=== PATIENT | male | born 2000 | race Caucasian/White ===

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

== ENCOUNTER → 2020-03-11 07:47 | Outpatient (BNVA) | payer BC, SELFPAY | PROVIDERS: Family Provider Family Medicine; PCP Family Medicine; Visit Provider Psychiatry & Neurology Psychiatry | DX: F31.9 Bipolar disorder, unspecified (principal); F41.1 Generalized anxiety disorder; F90.0 Attention-deficit hyperactivity disorder, predominantly inattentive type | CPT/HCPCS: 99214 ==

== ENCOUNTER → 2020-04-03 10:12 | Outpatient (BNVA) | payer BC, SELFPAY | PROVIDERS: Family Provider Family Medicine; PCP Family Medicine; Visit Provider Orthopaedic Surgery | DX: S82.851A Displaced trimalleolar fracture of right lower leg, initial encounter for closed fracture (principal); T14.8XXA Other injury of unspecified body region, initial encounter; Z11.59 Encounter for screening for other viral diseases; W19.XXXA Unspecified fall, initial encounter | CPT/HCPCS: 73610 ==

== ENCOUNTER → 2020-04-07 10:07 | Outpatient (BNVA) | payer BC, SELFPAY | PROVIDERS: Family Provider Family Medicine; PCP Family Medicine; Visit Provider Orthopaedic Surgery | DX: Z20.818 Contact with and (suspected) exposure to other bacterial communicable diseases (principal); T14.8XXA Other injury of unspecified body region, initial encounter; S82.851A Displaced trimalleolar fracture of right lower leg, initial encounter for closed fracture; X58.XXXA Exposure to other specified factors, initial encounter | CPT/HCPCS: 87635 ==

== ENCOUNTER 2020-04-08 05:30 | Day surgery (SDC) | payer BC, SELFPAY ==
[2020-04-07 11:15] VITALS: BMI 38.5
[2020-04-08] VITALS (11 sets, daily range): BP systolic 119–159; BP diastolic 68–102; PULSE 77–101; RESP 16–18; TEMP 36.1–36.9; O2SAT 92–99
--- NOTE | 2020-04-08 | XR_ITS ---
WS: [id number] Right ankle, 3 C-arm fluoroscopy views in the OR, 04/08/2020 Clinical Data: ORIF ankle Comparison: Right ankle, 04/03/2020. Findings: The trimalleolar fracture has been reduced with the aid of a distal fibular plate. There are at least 9 orthopedic screws attaching the plate to the fibula. There are 2 AP screws in the midportion of th e fibular fracture. There are 2 oblique screws in the medial malleolus. XR/XR ankle RT min 3V* [id number] Impression: Internal fixation of trimalleolar fracture.
--- NOTE | 2020-04-08 | SCC_ITS ---
Procedure Done: Open reduction internal fixation right medial and lateral malleolar 42.0 seconds of fluoroscopic guidance, for a cumulative dose of 1.73 mGy, was provided to Dr. Mackay by the radiology department. C-arm images of the RIGHT ankle were saved for the patient's permanent record. [facility] SYSTEM[facility]equ[facility]
[2020-04-08] MEDS: sodium chloride 0.9% 1,000 ML 30 ML IV (05:56)
[2020-04-08] MEDS: fentaNYL 50 mcg/mL INJ 2mL 100 MCG IVP (06:25)
[2020-04-08] MEDS: midazolam 1 mg/mL INJ 5 ML 5 MG IVP (06:26)
--- NOTE | 2020-04-08 06:38 | ANES.PREANE2 ---
Pre-Anesthetic Assessment Pre-Anesthetic Assessment: Height/Weight: Height 1.88 m Weight 136.078 kg Temp Pulse Resp BP Pulse Ox 96.9 F L 101 H 18 144/102 98 04/08/20 05:41 04/08/20 05:41 04/08/20 05:41 04/08/20 05:41 04/08/20 05:41 Preop Diagnosis: Right trimalleolar ankle Proposed Procedure: Operation Date: 04/08/20 07:00 Proposed Procedures p Open reduction internal fixation right trimalleolar fracture (10480) S82.851A(Right) - Roe Mackay MD Familial anesthetic complications: Woke up violent as a kid Was Beta Jeffrey taken within 24 hours: N/A Last intake: Intake Last Liquid Date 04/07/20 Last Liquid Time 23:00 Last Solid Date 04/07/20 Last Solid Time 19:00 Social: Social History: No alcohol and No tobacco Exam: Pre-Anes Outpt Exam: alert, oriented x 3, clear to auscultation bilaterally and regular rate & rhythm Airway: Cervical ROM: WNL MP: 2 Dentition: Full Metabolic: Metabolic: Morbid obesity Neuropsych: Neuropsych: Anxiety and Bipolar Anesthetic Plan: ASA status: 2 Anesthesia: General and Regional (specify below) Other: popliteal pre-op, adductor post op prn Risk of > 500 ml blood loss (7ml/kg in children): No Meds/Allergies Current Medications: Current Medications Generic Name Dose Route Start Last Admin Trade Name Freq PRN Reason Stop Dose Admin Sodium Chloride 1,000 mls @ 30 ml s/hr 04/08/20 05:45 04/08/20 05:56 Sodium Chloride 0.9% IV 04/09/20 05:44 30 mls/hr .Q24H ARIEL Administration PFSH Anesthesia PFSH: Medical History Attention-deficit hyperactivity disorder, combined type Bipolar 1 disorder Generalized anxiety disorder Head injury (~07/2002) Surgical History History of placement of ear tubes History of tonsillectomy and adenoidectomy Social History Smoking and tobacco status: never smoked Second hand smoke exposure: No Smoking risk assessment/counseling performed?: No Reason smoking risk assessment not done: not indicated Data Anesthesia Cardiac Studies: No Data to Display
--- NOTE | 2020-04-08 06:39 | ANES.PROC ---
Anesthesia Procedures Procedure/Date: 04/08/20 Nerve Block ^: Nerve Block 1: Main Anesthesia: general anesthesia Time Out Performed: Yes Consent: requested by attending/covering physician, from patient, risks and benefits reviewed and patient agrees to proceed Nerve block location: popliteal (R) Anesthesia monitors applied: EKG, BP cuff and oxygen Nerve block position: supine Anesthetic Used: ropivicaine 0.5% and with decadron (4 mg) Amount of anesthesia used (mL): 30 Ultrasound used to: recognize landmarks Nerve Stimulator Used?: No Interscalene/Femoral BLK: 4 stimuplex 21 g needle used for position and inplane approach, visualize local anesthetic spread and no vascular puncture identified Injection: neg aspiration of heme Patient Tolerated Procedure: well Complications: none
--- NOTE | 2020-04-08 07:05 | W.PM.OPSUD ---
Surgery/Procedure H&P Update DATE OF PROCEDURE: April 08, 2020 DATE H&P PERFORMED: 04/03/20 PREOP DIAGNOSIS: Right trimalleolar ankle PLANNED PROCEDURE: Operation Date: 04/08/20 07:00 Proposed Procedures p Open reduction internal fixation right trimalleolar fracture (87379) S82.851A(Right) - Roe Mackay MD
--- NOTE | 2020-04-08 08:58 | P.OP_ITS ---
Operative Report Date of procedure: April 08, 2020 Pre-op Diagnosis: Right trimalleolar ankle Post-op diagnosis: same Post-op Findings: Same Procedure Done: Open reduction internal fixation right medial and lateral malleolar Pathology: none sent Surgeon: Roe Mackay Anesthesia: General and Nerve Block (Popliteal nerve block) Estimated blood loss (mL): 25 Tourniquet time (min): 68 Complications: None Findings: Patient is a transverse fracture of the medial malleolus just the level of the mortise., He had a long spiral fracture of his fibular shaft distally and a small posterior malleolar Condition: stable Disposition: PACU Procedure: Patient was taken to the operating room and given 2 g of Ancef. He is prepped and draped in the supine position with a tourniquet on the right thigh. The tourniquet was inflated to 300 mmHg. Initial attention was paid to the medial malleolus. A 4 cm long curved incision was made over the medial malleolus. Dissection was carried down to the medial malleolar fragment. Utilizing a towel clip the fracture was reduced and fixed with two 4.0 cancellous screws and washers. Next a 12 cm long lateral incision was made over the lateral fracture. Dissection was carried down to the fibula. Utilizing reduction clamps the fibula was brought out to length. It was preliminarily fixed with 2 interfragmentary screws. A 12 hole [place] semitubular plate was then placed laterally fixed proximally with 5 bicortical screws and distally with 4 bicortical screws all with reasonable purchase. Intraoperative images obtained showed satisfactory alignment of the fracture. Deep tissues were closed with 0 Vicryl and subcutaneous tissues with 2-0 Vicryl. Julissa were placed. Incisions were covered with Xeroflo gauze, 4 x 4's compressive web roll and an Sánchez wrap. Patient was placed in his boot and taken to recovery room in stable condition.
--- NOTE | 2020-04-08 09:09 | SUR.PHASEI ---
PT TO PACU WITH ORAL AIRWAY PT BECAME RESTLESS, MANUAL ASSIST TO KEEP AIRWAY OPEN, PT WITH GOOD AIRMOVEMENT VSS ORAL AIRWAY OUT SHORTLY AFTER ARRIVAL TO PACU PT REPOSITIONED SELF TO LT SIDE MASK REMOVED PT KEEPS RUBBING IT OFF, PT DOES NOT AWAKE BUT VSS WITH GOOD RESP EFFORT NOTED. DRESSING TO T FOOT.
[2020-04-08] MEDS: HYDROcodone-acetaminophen 5-325 mg Tablet 1 TAB PO (09:55)
--- NOTE | 2020-04-08 10:20 | ANE.PACU2 ---
Inpatient post-anesthesia follow up: Airway intact: Yes Vital signs: Temperature 98.4 F Pulse Rate 88 Respiratory Rate 18 Blood Pressure 142/92 Pulse Oximetry 95 Oxygen Delivery Me thod Room Air Oxygen Flow Rate 8 Fraction of Inspir ed Oxygen Hydration adequate: Yes Nausea and vomiting: No Pain level: 1 Mental status: Baseline
== END 2020-04-08 10:30 | disposition home or self-care (01) ==
PROVIDERS: PCP Family Medicine; Visit Provider Orthopaedic Surgery
PROC: (CPT 27823; principal; 2020-04-08 07:00)
DX: S82.851A Displaced trimalleolar fracture of right lower leg, initial encounter for closed fracture (principal); X58.XXXA Exposure to other specified factors, initial encounter; F31.9 Bipolar disorder, unspecified; E66.01 Morbid (severe) obesity due to excess calories; F41.9 Anxiety disorder, unspecified; F90.2 Attention-deficit hyperactivity disorder, combined type
CPT/HCPCS: 27823; 12345; 73610; 76000; 96374; 96375; C1713; J0330; J0690; J1100; J1580; J2250; J2405; J2704; J2795; J3010; J3490; J7030

== ENCOUNTER → 2020-05-20 08:26 | Outpatient (BNVA) | payer BC, SELFPAY | PROVIDERS: PCP Family Medicine; Visit Provider Orthopaedic Surgery | DX: Z48.89 Encounter for other specified surgical aftercare (principal); S82.851A Displaced trimalleolar fracture of right lower leg, initial encounter for closed fracture; X58.XXXA Exposure to other specified factors, initial encounter | CPT/HCPCS: 73610 ==

== ENCOUNTER 2020-07-17 14:12 | Outpatient (CLI) | payer BC, SELFPAY ==
[2020-07-17 15:10] LABS: Anion Gap 12.3 (5-19); Blood Urea Nitrogen 14 mg/dL (6-20); Calcium 10.2 mg/dL (8.5-10.5); Carbon Dioxide 26 mmol/L (22-29); Chloride 104 mmol/L (98-107); Glomerular Filtration Rate 108.7 mL/min (90-130); Glucose 100 mg/dL (65-115); Osmolality Calculated 287 mOsm/kg (285-295); Potassium 4.3 mmol/L (3.5-5.1); Sodium 138 mmol/L (136-145); Thyroid Stimulating Hormone 1.41 uIU/mL (0.27-4.20)
[2020-07-17 15:25] LABS: Lithium 0.6 mmol/L (0.6-1.2)
== END 2020-07-17 14:13 | disposition home or self-care (01) ==
PROVIDERS: PCP Family Medicine; Visit Provider Psychiatry & Neurology Psychiatry
DX: Z79.899 Other long term (current) drug therapy (principal); F31.9 Bipolar disorder, unspecified
CPT/HCPCS: 36415; 80048; 80178; 84443

== ENCOUNTER → 2020-07-27 07:33 | Outpatient (BNVA) | payer BC, SELFPAY | PROVIDERS: PCP Family Medicine; Visit Provider Psychiatry & Neurology Psychiatry | DX: F31.9 Bipolar disorder, unspecified (principal); F90.0 Attention-deficit hyperactivity disorder, predominantly inattentive type; F41.1 Generalized anxiety disorder | CPT/HCPCS: 99213 ==

== ENCOUNTER 2021-02-11 15:26 | Outpatient (CLI) | payer BC, SELFPAY ==
[2021-02-11 15:58] LABS: Chol HDL Ratio 5.45 mg/dL (1.0-5.00); Cholesterol 180 mg/dL (0-200); HDL Cholesterol 33 mg/dL (60-100); Triglycerides 402 mg/dL (0-150)
[2021-02-11 17:03] LABS: Estmated Average Glucose 100; Hemoglobin A1C 5.1 % (4.0-6.0)
[2021-02-11 17:13] LABS: LDL Cholesterol Direct 110 mg/dL (0-100)
== END 2021-02-11 15:27 | disposition home or self-care (01) ==
LOC: LAB 15:29
PROVIDERS: PCP Family Medicine; Visit Provider Psychiatry & Neurology Psychiatry
DX: F31.9 Bipolar disorder, unspecified (principal); Z79.899 Other long term (current) drug therapy
CPT/HCPCS: 36415; 80061; 83036; 83721